=== PATIENT | male | born 1985 | race Caucasian/White ===

== ENCOUNTER 2017-06-15 21:35 | Emergency (ER) | payer OTHER ==
[~2017-06-15] VITALS: Ht 188 cm; Wt 68.2 kg
[2017-06-15 21:41] VITALS: Ht 188 cm; Wt 68.2 kg
[2017-06-15] MEDS ORDERED: FAMOTIDINE 20 MG TAB PO ONE (22:30)
[2017-06-15] MEDS ORDERED: DEXAMETHASONE 10 MG/ML 1 ML INJ IM ONE (22:30)
[2017-06-15] MEDS ORDERED: EPIN0.3P4 INJ (23:45)
[2017-06-15] MEDS ORDERED: PRED20TA PO (23:45)
[2017-06-15] MEDS ORDERED: BEN25 PO (23:45)
--- NOTE | 2017-06-16 00:49 | ERD ---
ER Documentation Chief Complaint Date/Time DATE: 06/16/17 TIME: 00:46 Chief Complaint ALLERGIC REACTION TO FISH. 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 DENIES SOB HPI 31-year-old male patient with no significant past medical history presents to the ED complaining of having an allergic reaction to eating ceviche. States that there was fish and Octopus in it and this is the first time that this is happened. Denies any fever, chills, shortness of breath, lip swelling, tongue swelling, nausea, vomiting, diarrhea, chest pain, wheezing. States that the rash developed 1 hour after he ate the ceviche. ROS All systems reviewed and are negative except as per history of present illness. Medications Home Meds Active Scripts Diphenhydramine Hcl* (Benadryl*) 25 Mg Cap, 25 MG PO Q6 Y for ITCHING/RASH, #30 TAB Prov:CIRA FITZGERALD PA-C 06/15/17 Prednisone* (Prednisone*) 20 Mg Tab, 40 MG PO DAILY for 4 Days, TAB Prov:CIRA FITZGERALD PA-C 06/15/17 Epinephrine (Epipen 2-Cesar) 0.3 Mg/0.3 Ml Pen.injctr, 1 EA INJ ONCE Y for ALLERGIC REACTION, #1 EA Prov:CIRA FITZGERALD PA-C 06/15/17 Allergies Allergies: Coded Allergies: No Known Allergy (Unverified , 06/15/17) PMhx/Soc History of Surgery: No Anesthesia Reaction: No Hx Neurological Disorder: No Hx Respiratory Disorders: No Hx Cardiac Disorders: No Hx Psychiatric Problems: No Hx Miscellaneous Medical Probl: No Hx Alcohol Use: No Hx Substance Use: No Hx Tobacco Use: No Smoking Status: Never smoker Physical Exam Vitals Vital Signs Date Time Temp Pulse Resp B/P Pulse Ox O2 Delivery O2 Flow Rate FiO2 06/15/17 21:41 97.0 84 20 130/61 99 Physical Exam Const: Eor-anp-hztsjrurn, well-nourished. In no acute distress. Head: Atraumatic, normocephalic Eyes: Normal Conjunctiva without injection. No purulent discharge. PERRL. EOMI ENT: Normal external ear. Ear canal without erythema. Tympanic membrane pearly almanza without effusion or bulging. Nasal canal clear with normal turbinates. Moist oropharynx without tonsillar exudates. Non-erythematous pharynx. No angioedema. Uvula midline. No drooling. No trismus. Neck: Full range of motion. No meningismus. No cervical lymphadenopathy. Resp: Clear to auscultation bilaterally. No wheezing, rhonchi, rales, or crackles. No accessory muscle use. No retractions. Cardio: Regular rate and rhythm. No murmurs, rubs or gallops. Abd: Soft, non tender, non distended. Normal bowel sounds. No palpable masses. No rebound tenderness. No guarding. Skin: No petechiae or purpura. Erythematous blanching wheals, 1 cm in size noted on the left side of patient's face, left upper extremity, left side of the neck with no lymphatic streaking noted. No fluctuance or induration. No bleeding. Back: No midline tenderness. No CVA tenderness. Ext: No cyanosis, or edema. Neur: Awake and alert. Psych: Normal Mood and Affect Results 24 hrs Current Medications Medications (Trade) Dose Ordered Sig/Taj Route PRN Reason Start Time Stop Time Status Last Admin Dose Admin Dexamethasone (Decadron) 10 mg ONCE ONCE IM 06/15/17 22:30 06/15/17 22:31 DC Famotidine (Pepcid) 20 mg ONCE ONCE PO 06/15/17 22:30 06/15/17 22:31 DC Procedures/MDM This is a 31-year-old male patient with no significant past medical history presents to the ED complaining of having hives after eating ceviche. Patient is afebrile and nontoxic-appearing. Patient has normal vital signs. This patient presents to the ED with symptoms consistent with an allergic reaction possibly to food. Patient reports that he took 2 tabs of Benadryl prior to arrival, and is experiencing improvement with his urticaria. Patient is afebrile and has normal vital signs. No angioedema noted. Patient's physical exam include lungs which were clear to auscultation and a normal pulse oximetry. There is a low suspicion for anaphylaxis, pneumonia, pneumothorax, mononucleosis, pulmonary embolism, epiglottitis, otitis media, otitis externa, viral/strep pharyngitis, sinusitis, peritonsillar abscess, mastoiditis, retropharyngeal abscess, meningitis, sepsis, acute abdomen or other emergent conditions. Low suspicion for scabies, SJS/TEN, erythema multiforme, sepsis, cellulitis, necrotizing fascitis, gangrene, meningococcemia or other emergent conditions. Discharge medications: Benadryl, Prednisone, EpiPen Patient was instructed to return to the ED for any new or worsening symptoms for referral for allergy testing. They should otherwise follow up with the primary care provider within 1-2 days. The patient's questions were answered at the time of discharge. Patient understood and agreed with discharge management. Departure Diagnosis: Primary Impression: Food allergy Condition: Stable Patient Instructions: Allergic Reaction, Other (General), Food Allergy Referrals: COMMUNITY CLINICS YOU HAVE RECEIVED A MEDICAL SCREENING EXAM AND THE RESULTS INDICATE THAT YOU DO NOT HAVE A CONDITION THAT REQUIRES URGENT TREATMENT IN THE EMERGENCY DEPARTMENT. FURTHER EVALUATION AND TREATMENT OF YOUR CONDITION CAN WAIT UNTIL YOU ARE SEEN IN YOUR DOCTORS OFFICE WITHIN THE NEXT 1-2 DAYS. IT IS YOUR RESPONSIBILITY TO MAKE AN APPOINTMENT FOR FOLOW-UP CARE. IF YOU HAVE A PRIMARY DOCTOR --you should call your primary doctor and schedule an appointment IF YOU DO NOT HAVE A PRIMARY DOCTOR YOU CAN CALL OUR PHYSICIAN REFERRAL HOTLINE AT IF YOU CAN NOT AFFORD TO SEE A PHYSICIAN YOU CAN CHOSE FROM THE FOLLOW[facility] [address] [facility]. [facility] [address] [facility]. [facility] [address] [facility] [facility] [address] [facility] [facility] [address] [facility]. [facility]. [address] [facility]. [facility] YOU HAVE RECEIVED A MEDICAL SCREENING EXAM AND THE RESULTS INDICATE THAT YOU DO NOT HAVE A CONDITION THAT REQUIRES URGENT TREATMENT IN THE EMERGENCY DEPARTMENT. FURTHER EVALUATION AND TREATMENT OF YOUR CONDITION CAN WAIT UNTIL YOU ARE SEEN IN YOUR DOCTORS OFFICE WITHIN THE NEXT 1-2 DAYS. IT IS YOUR RESPONSIBILITY TO MAKE AN APPOINTMENT FOR FOLOW-UP CARE. IF YOU HAVE A PRIMARY DOCTOR --you should call your primary doctor and schedule and appointment IF YOU DO NOT HAVE A PRIMARY DOCTOR YOU CAN CALL OUR PHYSICIAN REFERRAL HOTLINE AT . IF YOU CAN NOT AFFORD TO SEE A PHYSICIAN YOU CAN CHOSE FROM THE FOLLOWING [facility] INSTITUTIONS: [facility] [address] [place] [address] [facility] [address] [place] [address] [facility] [address] [place] [address] [facility] Additional Instructions: FOLLOW UP WITH YOUR PRIMARY CARE PHYSICIAN TOMORROW for allergy testing.Return to this facility if you are not improving as expected - fever, shortness of breath, wheezing, lip swelling, etc. CIRA FITZGERALD PA-C Jun 16, 2017 00:49
== END 2017-06-16 | disposition home or self-care (01) ==
LOC: FTE 21:35
DX: T78.1XXA Other adverse food reactions, not elsewhere classified, initial encounter (principal); L50.0 Allergic urticaria
CPT/HCPCS: 99283; J1100